=== PATIENT | female | born 1985 | race Caucasian/White ===

== ENCOUNTER 2016-04-25 17:41 | Emergency (ER) | payer SELFPAY ==
[2016-04-25] MEDS ORDERED: Sensorcaine 0.25% 10 ML IJ ONE (18:03)
[2016-04-25] MEDS ORDERED: BACIGUENT PACKET TP ONE (18:03)
[2016-04-25] MEDS ORDERED: Sensorcaine 0.25% 10 ML ONE (18:05)
--- NOTE | 2016-04-25 18:08 | ERPHSYRPT ---
- History of Present Illness Time Seen by Provider: 04/25/16 18:00 Source: patient Exam Limitations: no limitations Patient Subjective Stated Complaint: PT CUT LEFT RING FINGER ON CAN LID. 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; no other injury or complaints; no numbness or weakness Occurred: just prior to arrival Method of Injury: incised Quality: constant Severity of Pain-Max: mild Severity of Pain-Current: mild Extremities Pain Location: 4th finger: left (1cm volar) Modifying Factors: Improves With: nothing Associated Symptoms: none Allergies/Adverse Reactions: Penicillins Allergy (Verified 04/25/16 17:54) Home Medications: Ranitidine HCl [Zantac 75] 75 mg DAILY 04/25/16 [History] Hx Tetanus, Diphtheria Vaccination/Date Given: Yes (7 YEARS) Hx Influenza Vaccination/Date Given: No Hx Pneumococcal Vaccination/Date Given: No Immunizations Up to Date: Yes - Review of Systems Constitutional: No Symptoms Eyes: No Symptoms Ears, Nose, & Throat: No Symptoms Respiratory: No Cough, No Cyanosis, No Dyspnea Cardiac: No Chest Pain, No Edema, No Palpitations Abdominal/Gastrointestinal: No Abdominal Pain, No Nausea, No Vomiting, No Diarrhea Genitourinary Symptoms: No Symptoms Musculoskeletal: Injury (laceration left ring finger), No Arthralgias, No Back Pain, No Neck Pain Skin: No Symptoms Neurological: No Symptoms Psychological: No Symptoms - Past Medical History Pertinent Past Medical History: Yes Respiratory History: Bronchitis Psycho-Social History: Attention Deficit Disorder, Bipolar Other Medical History: CHRONIC BACK PAIN - Past Surgical History Past Surgical History: Yes Other Surgical History: OVARIAN CYST - Social History Smoking Status: Current every day smoker Exposure to second hand smoke: Yes Alcohol Use: Socially Drug Use: none Patient Lives Alone: Yes Significant Family History: no pertinent family hx - Female History Hx Last Menstrual Period: DEC 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) - Nursing Vital Signs Nursing Vital Signs: Initial Vital Signs Temperature 97.0 F Temperature Source Oral Pulse Rate 92 Respiratory Rate 16 Blood Pressure [Right Arm] 142/106 Pain Intensity 7 - Physical Exam General Appearance: mild distress, alert, thin Shoulder Exam: normal inspection, non-tender, no evidence of injury, normal ROM Elbow/Forearm Exam: normal inspection, non-tender, no evidence of injury, normal ROM Wrist Exam: normal inspection, non-tender, no evidence of injury, normal ROM Hand Exam: non-tender, normal ROM, laceration (left ring finger), No no evidence of injury (1 cm laceration volar aspect proximal left ring finger; no bleeding or FB; no distal defecits), No bone tenderness Neuro/Tendon Exam: normal sensation, normal motor functions, normal tendon functions, responds to pain, no evidence tendon injury Mental Status Exam: alert, oriented x 3, cooperative Skin Exam: normal color, warm, dry, No rash SpO2 Interpretation: normal SpO2: 99 Oxygen Delivery: Room Air Procedures - Laceration/Wound Repair Left Proximal Volar Finger Wound Location: Left, hand (ring finger) Wound Length (cm): 1.0 Wound's Depth, Shape: linear, into subcut Wound Explored: clean Irrigated: Yes Hibiclens Prep: Yes Anesthesia: digital block, marcaine 0.25 Volume Anesthetic (ccs): 4 Wound Repaired With: sutures Suture Size/Type: 5-0 Number of Sutures: 3 Layer Closure?: No - Course Nursing assessment & vital signs reviewed: Yes Ordered Tests: Active Orders 24 hr Category Date Time Status Re-Check Vital Signs STAT Care 04/25/16 18:03 Active Wound Care STAT Care 04/25/16 18:03 Active Medication Summary Discontinued Medications Generic Name Dose Route Start Last Admin Trade Name Freq PRN Reason Stop Dose Admin Bacitracin 0.9 gm 04/25/16 18:03 04/25/16 18:23 Baciguent Packet TP 04/25/16 18:04 0.9 gm STAT ONE Administration Bacitracin Confirm 04/25/16 18:24 Baciguent Packet Administered 04/25/16 18:25 Dose 1 gm .ROUTE .STK-MED ONE Bupivacaine HCl 5 ml 04/25/16 18:03 04/25/16 18:23 Sensorcaine 0.25% 10 Ml IJ 04/25/16 18:04 5 ml STAT ONE Administration Bupivacaine HCl Confirm 04/25/16 18:05 Sensorcaine 0.25% 10 Ml Administered 04/25/16 18:06 Dose 10 ml .ROUTE .STK-MED ONE - Progress Progress: improved, re-examined Progress Note: 04/25/16 18:32 instructions given Counseled pt/family regarding: diagnosis, need for follow-up - Departure Time of Disposition: 18:32 Departure Disposition: Home Clinical Impression: Trigger finger, left ring finger Condition: Stable Critical Care Time: No Referrals: ALISSA CHRISTIANSEN [Primary Care Provider] - Instructions: Care for a Laceration After Repair, Laceration Repair -- Simple, Laceration Repair -- Finger Additional Instructions: suture removal 7-10 days; clean; bacitracin Follow-up with family doctor as directed. Call for appointment. Return if any problems. If you smoke please stop. Call or follow up with your family doctor for assistance if you need it to stop. Please wear your seatbelt when driving. Have a nice day. Thank you for allowing us to participate in your care today. :o) Dr Alexander Barney
[2016-04-25] MEDS ORDERED: BACIGUENT PACKET ONE (18:24)
[2016-04-25 18:46] VITALS: BP 126/73; PULSE 72; O2SAT 98
== END 2016-04-25 18:49 | disposition home or self-care (01) ==
LOC: ED 17:41
PROC: 0HQGXZZ Repair Left Hand Skin, External Approach (ICD-10-PCS; principal; 2016-04-25)
DX: M65.342 Trigger finger, left ring finger (principal); S61.215A Laceration without foreign body of left ring finger without damage to nail, initial encounter; W26.8XXA Contact with other sharp object(s), not elsewhere classified, initial encounter
CPT/HCPCS: 12001; 99282; 99283

== ENCOUNTER 2016-10-17 03:16 | Emergency (ER) | payer OTHER ==
[2016-10-17 04:21] LABS: Collection Type CATH; Glucose NEGATIVE (NEGATIVE); Leukocyte Esterase NEGATIVE (NEGATIVE)
[2016-10-17 04:22] LABS: Bilirubin NEGATIVE (NEGATIVE); Blood 250 Ery/ul (0-5); COMPLETE URINE MICROSCOPIC? YES; Epithelial Cells RARE /HPF (FEW)
--- NOTE | 2016-10-17 04:38 | ERPHSYRPT ---
- History of Present Illness Time Seen by Provider: 10/17/16 03:35 Source: patient Exam Limitations: clinical condition Patient Subjective Stated Complaint: pt just found out she is 12 weeks friday when she was seen at the [facility] for urinary retention-she has a el place with a return o 800cc -it remained in until 1300 wed she voided without difficulty until 2100 last night and hasn't voided since -she arr very uncomfortable -cont drinking water until she began to feel nauseated no fever - no infection in the urine at the clinic -ultrasound done revealed a 12 week -pt is gr 3 p2 Triage Nursing Assessment: pt is awake and alert and able to answer questions she cannot sit down it is to uncomfortable - she began to dribble a little on arr but was unable to cont voiding in the br Physician History: PATIENT IS A -3, PARA-2, 12 WEEK GESTATION COMPLAINS OF URGENCY WITH INABILITY TO VOID SINCE LAST NIGHT. HEAD EL CATHETER REMOVED YESTERDAY FOR ACUTE URINARY RETENTION. DENIES ABDOMINAL PAIN, FEVER, FLANK PAIN, NAUSEA OR EMESIS. Timing/Duration: yesterday Activites at Onset: none Onset Location: suprapubic Pain Radiation: none Severity of Pain-Max: mild Severity of Pain-Current: mild Sexual intercourse history: non-contributory Modifying Factors: Improves With: urinating Associated Symptoms: urinary frequency, other (URGENCY) Allergies/Adverse Reactions: Penicillins Allergy (Verified 10/17/16 03:50) Home Medications: No Reportable Medications [No Reported Medications] 10/17/16 [History] Hx Tetanus, Diphtheria Vaccination/Date Given: Yes (7 YEARS) Hx Influenza Vaccination/Date Given: No Hx Pneumococcal Vaccination/Date Given: No - Review of Systems Constitutional: No Fever, No Chills Eyes: No Symptoms Ears, Nose, & Throat: No Symptoms Respiratory: No Cough, No Dyspnea Cardiac: No Chest Pain, No Edema, No Syncope Abdominal/Gastrointestinal: No Abdominal Pain, No Nausea, No Vomiting, No Diarrhea Genitourinary Symptoms: Urgency, Urinary Retention, No Dysuria Musculoskeletal: No Back Pain, No Neck Pain Skin: No Rash Neurological: No Dizziness, No Focal Weakness, No Sensory Changes Psychological: No Symptoms Endocrine: No Symptoms All Other Systems: Reviewed and Negative - Past Medical History Pertinent Past Medical History: Yes Respiratory History: Bronchitis Psycho-Social History: Attention Deficit Disorder, Bipolar Other Medical History: CHRONIC BACK PAIN - Past Surgical History Past Surgical History: Yes Other Surgical History: OVARIAN CYST - Social History Smoking Status: Current every day smoker Exposure to second hand smoke: Yes Alcohol Use: Socially Drug Use: none Patient Lives Alone: No Significant Family History: no pertinent family hx - Female History Hx Last Menstrual Period: last month 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 Nursing Vital Signs: Initial Vital Signs Temperature 98.4 F 10/17/16 03:20 Pulse Rate 80 10/17/16 03:20 Respiratory Rate 16 10/17/16 03:20 Blood Pressure 115/68 10/17/16 03:20 O2 Sat by Pulse Oximetry 98 10/17/16 03:20 Pain Scale Pain Intensity 8 - Physical Exam General Appearance: no apparent distress, alert Eye Exam: PERRL/EOMI, eyes nml inspection Ears, Nose, Throat Exam: normal ENT inspection, TMs normal, pharynx normal, moist mucous membranes Neck Exam: normal inspection, non-tender, supple, full range of motion Respiratory Exam: normal breath sounds, lungs clear, No respiratory distress Cardiovascular Exam: regular rate/rhythm, normal heart sounds, normal peripheral pulses Gastrointestinal/Abdomen Exam: soft, distention, No tenderness, No mass Back Exam: normal inspection, normal range of motion, No CVA tenderness, No vertebral tenderness Extremity Exam: normal inspection, normal range of motion, pelvis stable Neurologic Exam: alert, oriented x 3, cooperative, 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, normal mood/affect, sensation nml, No motor deficits Skin Exam: normal color, warm, dry Lymphatic Exam: No adenopathy SpO2: 98 Oxygen Delivery: Room Air Ordered Tests: Active Orders 24 hr Category Date Time Status ACCUCHECK [Accucheck] STAT Care 10/17/16 03:51 Active Heart Tones-ED STAT Care 10/17/16 03:59 Active El [Catheter-Turner El] STAT Care 10/17/16 03:52 Active UA W/ MICROSCOPIC Stat Lab 10/17/16 04:00 Completed Lab/Rad Data: Laboratory Results 10/17/16 Range/Units 04:00 Ur Collection Type CATH Urine Color YELLOW (YELLOW) Urine Appearance CLEAR (CLEAR) Urine pH 7.0 (5-6) Ur Specific [place] 1.010 (1.005-1.025) Urine Protein NEGATIVE (Negative) Urine Ketones NEGATIVE (NEGATIVE) Urine Blood 250 (0-5) Aidan/ul Urine Nitrite NEGATIVE (NEGATIVE) Urine Bilirubin NEGATIVE (NEGATIVE) Urine Urobilinogen NORMAL (0-1) mg/dL Ur Leukocyte Esterase NEGATIVE (NEGATIVE) Urine Microscopic RBC >100 (0-2) /HPF Ur Epithelial Cells RARE (FEW) /HPF Urine Glucose NEGATIVE (NEGATIVE) mg/dL Specimen Received 10-17-16 0420 - Progress Progress Note: 10/17/16 04:38 HEART TONES 150, ACCUCHECK 84 10/17/16 04:43 EL CATH INSERTION URINE OUT PUT 550ML Counseled pt/family regarding: lab results, diagnosis, need for follow-up - Departure Time of Disposition: 04:56 Departure Disposition: Home Clinical Impression: ACUTE URINARY RETENTION, Condition: Stable Critical Care Time: No Additional Instructions: MAINTAIN EL CATHETER UNTIL REMOVAL PER DR GARCIA. CALL OFFICE THIS AM FOR APPOINTMENT.
[2016-10-17 05:14] VITALS: PULSE 72; O2SAT 97
[2016-10-17 05:17] VITALS: BP 112/78
== END 2016-10-17 05:10 | disposition home or self-care (01) ==
LOC: ED 03:16
DX: O26.891 Other specified pregnancy related conditions, first trimester (principal); R33.9 Retention of urine, unspecified; R11.0 Nausea; R35.0 Frequency of micturition; R39.15 Urgency of urination; F98.8 Other specified behavioral and emotional disorders with onset usually occurring in childhood and adolescence
CPT/HCPCS: 51702; 81000; 82962; 99283

== ENCOUNTER 2016-10-29 12:22 | Emergency (ER) | payer OTHER ==
[2016-10-29 12:35] VITALS: O2SAT 100
[2016-10-29] MEDS ORDERED: Sodium Chloride 0.9% 1000 ML 1,000 ML IV STA (13:43)
--- NOTE | 2016-10-29 13:43 | ERPHSYRPT ---
- History of Present Illness Time Seen by Provider: 10/29/16 13:41 Source: patient Exam Limitations: no limitations Patient Subjective Stated Complaint: 16 weeks . this am having vaginal cramping and spotting Triage Nursing Assessment: ambulated to room per self without difficulty. skin w/d, color normal, resp easy. two other pregnancies normal. Physician History: The patient is a 31-year-old female at 16 weeks complaining of mild abdominal cramping and vaginal spotting today. Her boss at work told her to come to the ER. Timing/Duration: today Severity: mild Associated Symptoms: denies symptoms Allergies/Adverse Reactions: Penicillins Allergy (Verified 10/29/16 12:36) Home Medications: No Reportable Medications [No Reported Medications] 10/17/16 [History] Hx Tetanus, Diphtheria Vaccination/Date Given: Yes (7 YEARS) Hx Influenza Vaccination/Date Given: No Hx Pneumococcal Vaccination/Date Given: No - Review of Systems Constitutional: No Fever, No Chills Eyes: No Symptoms Respiratory: No Cough, No Dyspnea Cardiac: No Chest Pain, No Edema, No Syncope Abdominal/Gastrointestinal: Other (cramping) Genitourinary Symptoms: Vaginal Bleeding (spotting) Musculoskeletal: No Back Pain, No Neck Pain Skin: No Rash Neurological: No Dizziness, No Focal Weakness, No Sensory Changes Psychological: No Symptoms Endocrine: No Symptoms Hematologic/Lymphatic: No Symptoms Immunological/Allergic: No Symptoms All Other Systems: Reviewed and Negative - Past Medical History Pertinent Past Medical History: Yes Respiratory History: Bronchitis Psycho-Social History: Attention Deficit Disorder, Bipolar Other Medical History: CHRONIC BACK PAIN - Past Surgical History Past Surgical History: Yes Other Surgical History: OVARIAN CYST - Social History Smoking Status: Former smoker Exposure to second hand smoke: Yes Alcohol Use: Socially Drug Use: none Patient Lives Alone: No Significant Family History: no pertinent family hx - Female 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 Vital Signs Nursing Vital Signs: Initial Vital Signs Temperature 97.9 F 10/29/16 12:28 Pulse Rate 73 10/29/16 12:28 Respiratory Rate 16 10/29/16 12:28 Blood Pressure 116/65 10/29/16 12:28 O2 Sat by Pulse Oximetry 100 10/29/16 12:28 Pain Scale Pain Intensity 3 - Physical Exam General Appearance: no apparent distress, alert Eye Exam: PERRL/EOMI, eyes nml inspection Ears, Nose, Throat Exam: normal ENT inspection, TMs normal, pharynx normal, moist mucous membranes Neck Exam: normal inspection, non-tender, supple, full range of motion Respiratory Exam: normal breath sounds, lungs clear, No respiratory distress Cardiovascular Exam: regular rate/rhythm, normal heart sounds, normal peripheral pulses Gastrointestinal/Abdomen Exam: soft, normal bowel sounds, No tenderness, No mass Pelvic Exam: not done Rectal Exam: not done Back Exam: normal inspection, normal range of motion, No CVA tenderness, No vertebral tenderness Extremity Exam: normal inspection, normal range of motion, pelvis stable Neurologic Exam: alert, oriented x 3, cooperative, normal mood/affect, nml cerebellar function, nml station & gait, sensation nml, No motor deficits Skin Exam: normal color, warm, dry, No rash Lymphatic Exam: No adenopathy SpO2 Interpretation: normal SpO2: 100 Oxygen Delivery: Room Air Ordered Tests: Active Orders 24 hr Category Date Time Status Heart Tones-ED STAT Care 10/29/16 13:43 Active IV Insertion STAT Care 10/29/16 13:43 Active BMP Stat Lab 10/29/16 13:54 Completed CBC W DIFF Stat Lab 10/29/16 13:54 Completed CULTURE,URINE Stat Lab 10/29/16 14:00 Received UA W/ MICROSCOPIC Stat Lab 10/29/16 14:00 Completed Medication Summary Discontinued Medications Generic Name Dose Route Start Last Admin Trade Name Farshad PRN Reason Stop Dose Admin Sodium Chloride 1,000 mls @ 999 mls/hr 10/29/16 13:43 10/29/16 13:55 Sodium Chloride 0.9% 1000 Ml IV 10/29/16 14:43 999 mls/hr .Q1H1M STA Administration Sodium Chloride Confirm 10/29/16 13:54 Sodium Chloride 0.9% 1000 Ml Administered 10/29/16 13:55 Dose 1,000 mls @ ud .ROUTE .STK-MED ONE Lab/Rad Data: Laboratory Result Diagrams 10/29/16 13:54 10/29/16 13:54 Laboratory Results 10/29/16 10/29/16 10/29/16 Range/Units 14:00 13:54 13:54 WBC 13.8 H (4.0-10.5) K/mm3 RBC 3.78 L (4.1-5.4) M/mm3 Hgb 11.9 L (12.0-16.0) gm/dl Hct 34.5 L (35-47) % MCV 91.3 (78-100) fl MCH 31.4 (26-32) pg MCHC 34.5 (32-36) g/dl RDW 12.9 (11.5-14.0) % Plt Count 206 (150-450) K/mm3 MPV 10.0 H (6-9.5) fl Gran % 81.3 H (36.0-66.0) % Lymphocytes % 13.8 L (24.0-44.0) % Monocytes % 4.1 (0.0-12.0) % Eosinophils % 0.7 (0.00-5.0) % Basophils % 0.1 (0.0-0.4) % Basophils # 0.02 (0-0.4) Sodium 135 L (136-145) mEq/L Potassium 3.5 (3.5-5.1) mEq/L Chloride 101 (98-107) mEq/L Carbon Dioxide 22.4 (21-32) mEq/L Anion Gap 14.9 (5-15) MEQ/L BUN 8 L (9-20) mg/dL Creatinine 0.71 (0.55-1.30) mg/dl Estimated GFR > 60 ML/MIN Glucose 89 (70-110) MG/DL Calcium 8.9 (8.5-10.1) mg/dL Ur Collection Type CCMS Urine Color YELLOW (YELLOW) Urine Appearance CLEAR (CLEAR) Urine pH 6.0 (5-6) Ur Specific [place] 1.010 (1.005-1.025) Urine Protein NEGATIVE (Negative) Urine Ketones NEGATIVE (NEGATIVE) Urine Blood TRACE NON-HEM (0-5) Aidan/ul Urine Nitrite NEGATIVE (NEGATIVE) Urine Bilirubin NEGATIVE (NEGATIVE) Urine Urobilinogen NORMAL (0-1) mg/dL Ur Leukocyte Esterase TRACE (NEGATIVE) Urine Microscopic RBC 0-2 (0-2) /HPF Urine Microscopic WBC 0-2 (0-5) /HPF Ur Epithelial Cells FEW (FEW) /HPF Urine Glucose NEGATIVE (NEGATIVE) mg/dL Specimen Received 10-29-16 1412 - Progress Progress: improved Progress Note: 10/29/16 14:46 FHT were 130s bpm. Counseled pt/family regarding: lab results, diagnosis, need for follow-up - Departure Time of Disposition: 14:46 Departure Disposition: Home Clinical Impression: Vaginal bleeding before 22 weeks gestation Condition: Stable Critical Care Time: No Additional Instructions: You had mild vaginal bleeding during this . You were given IV fluids in the ER. The heart tones could be heard by ultrasound and were in the 130 bpm range. Please schedule follow-up appointment with her OB doctor.
[2016-10-29 13:54] VITALS: BP 110/32; PULSE 82
[2016-10-29] MEDS ORDERED: Sodium Chloride 0.9% 1000 ML 1,000 ML ONE (13:54)
[2016-10-29 14:00] LABS: BASOPHIL % 0.1 % (0.0-0.4); Eosinophil % 0.7 % (0.00-5.0); Granulocytes % 81.3 % (36.0-66.0); Lymphocytes % 13.8 % (24.0-44.0); Mean Cell Volume 91.3 fl (78-100); Monocytes % 4.1 % (0.0-12.0); Platelet Count 206 K/mm3 (150-450); Red Blood Count 3.78 M/mm3 (4.1-5.4); Red Cell Distribution Width 12.9 % (11.5-14.0); White Blood Count 13.8 K/mm3 (4.0-10.5)
[2016-10-29 14:01] LABS: Mean Corpuscular Hemoglobin 31.4 pg (26-32)
[2016-10-29 14:12] LABS: Collection Type CCMS
[2016-10-29 14:13] LABS: ANION GAP 14.9 MEQ/L (5-15); BLOOD UREA NITROGEN 8 mg/dL (9-20); CHLORIDE 101 mEq/L (98-107); Carbon Dioxide 22.4 mEq/L (21-32); Glucose 89 MG/DL (70-110); Potassium 3.5 mEq/L (3.5-5.1); SODIUM 135 mEq/L (136-145)
[2016-10-29 14:13] LABS: Bilirubin NEGATIVE (NEGATIVE); Blood TRACE NON-HEM Ery/ul (0-5); COMPLETE URINE MICROSCOPIC? YES; Epithelial Cells FEW /HPF (FEW); Glucose NEGATIVE (NEGATIVE); Leukocyte Esterase TRACE (NEGATIVE); WBC 0-2 /HPF (0-5)
[2016-10-29 14:14] LABS: ADD URINE CULTURE? YES (NO)
== END 2016-10-29 14:54 | disposition home or self-care (01) ==
LOC: ED 12:22
DX: O20.9 Hemorrhage in early pregnancy, unspecified (principal); Z3A.16 16 weeks gestation of pregnancy
CPT/HCPCS: 36000; 36415; 80048; 81000; 85025; 87086; 96360; 99284

== ENCOUNTER 2016-11-11 18:35 | Inpatient (IN) | payer OTHER ==
[2016-11-11 21:14] LABS: BASOPHIL % 0.1 % (0.0-0.4); Eosinophil % 0.8 % (0.00-5.0); Granulocytes % 77.6 % (36.0-66.0); Lymphocytes % 16.3 % (24.0-44.0); Mean Cell Volume 91.1 fl (78-100); Mean Platelet Volume 9.9 fl (6-9.5); Monocytes % 5.2 % (0.0-12.0); Platelet Count 225 K/mm3 (150-450); Red Cell Distribution Width 13.1 % (11.5-14.0); White Blood Count 17.2 K/mm3 (4.0-10.5)
[2016-11-11 21:15] LABS: Mean Corpuscular Hemoglobin 31.3 pg (26-32)
[2016-11-11] MEDS ORDERED: xanAX 0.5 MG PO PRN (21:19)
[2016-11-11 21:27] LABS: INR 0.89 (0.8-3.0)
[2016-11-11] MEDS ORDERED: GENTAMICIN 80 MG/50 ML PREMIX*** 80 MG/50 ML ML IV ONE (21:37)
[2016-11-11] MEDS ORDERED: Unasyn 3GM / NaCl 100ML 3 GM/100 ML IVPB ONE (21:37)
[2016-11-11 21:38] LABS: ALBUMIN 2.8 g/dL (3.4-5.0); ALKALINE PHOSPHATASE 67 U/L (46-116); ANION GAP 17.6 MEQ/L (5-15); BLOOD UREA NITROGEN 10 mg/dL (9-20); CHLORIDE 107 mEq/L (98-107); Carbon Dioxide 17.6 mEq/L (21-32); Glucose 104 MG/DL (70-110); Potassium 3.5 mEq/L (3.5-5.1); SGOT/AST 14 U/L (15-37); SGPT/ALT 21 U/L (12-78); SODIUM 139 mEq/L (136-145); Total Protein 6.5 gm/dL (6.4-8.2)
[2016-11-11] MEDS: GENTAMICIN 80 MG/50 ML PREMIX*** 80 MG/50 ML ML IV SCH (21:50)
[2016-11-11] MEDS ORDERED: Lactated Ringers 1,000 ML IV SCH (22:00)
[2016-11-11] MEDS ORDERED: CYTOTEC ONE (22:00)
[2016-11-11] MEDS ORDERED: PITOCIN 30 UNITS/ LR 500 ML 500 ML IV SCH (22:00)
[2016-11-11] MEDS ORDERED: Morphine PCA 1 MG/ML 30 ML IV ONE (22:07)
[2016-11-11] MEDS: Morphine PCA 1 MG/ML 30 ML IV PRN (22:10)
[2016-11-11] MEDS: Unasyn 3GM / NaCl 100ML 3 GM/100 ML IVPB IV SCH (22:23)
[2016-11-12 00:27] LABS: Bilirubin NEGATIVE (NEGATIVE); Collection Type CATH; Glucose NEGATIVE (NEGATIVE); Leukocyte Esterase NEGATIVE (NEGATIVE)
[2016-11-12 00:28] LABS: Bacteria FEW /HPF (NEGATIVE); Blood 50 Ery/ul (0-5); COMPLETE URINE MICROSCOPIC? YES; Epithelial Cells FEW /HPF (FEW)
[2016-11-12] MEDS ORDERED: CYTOTEC VAG ONE (02:00)
[2016-11-12] MEDS: Unasyn 3GM / NaCl 100ML 3 GM/100 ML IVPB IV SCH ×3 (03:57→17:50)
[2016-11-12] MEDS ORDERED: Dermoplast Spray TP PRN (04:05)
[2016-11-12] MEDS ORDERED: Dulcolax 10 MG SUPP PR PRN (04:05)
[2016-11-12] MEDS ORDERED: NORCO 5/325 MG PO PRN (04:05)
[2016-11-12] MEDS ORDERED: TYLENOL EXTRA STRENGTH 500 MG PO PRN (04:05)
[2016-11-12] MEDS ORDERED: Anucort-HC SUPPOSITORY PR PRN (04:05)
[2016-11-12] MEDS ORDERED: CORTISONE 1% CREAM TP PRN (04:05)
[2016-11-12] MEDS: MOTRIN 400 MG PO PRN ×2 (04:08→20:16)
[2016-11-12] MEDS: GENTAMICIN 80 MG/50 ML PREMIX*** 80 MG/50 ML ML IV SCH ×2 (05:33→14:40)
[2016-11-12] MEDS: Morphine PCA 1 MG/ML 30 ML IV PRN (06:03)
[2016-11-12 06:07] LABS: BASOPHIL % 0.1 % (0.0-0.4); Eosinophil % 0.4 % (0.00-5.0); Granulocytes % 82.9 % (36.0-66.0); Lymphocytes % 11.8 % (24.0-44.0); Mean Cell Volume 91.4 fl (78-100); Mean Platelet Volume 10.1 fl (6-9.5); Monocytes % 4.8 % (0.0-12.0); Platelet Count 210 K/mm3 (150-450); Red Blood Count 3.36 M/mm3 (4.1-5.4); Red Cell Distribution Width 12.9 % (11.5-14.0); White Blood Count 16.7 K/mm3 (4.0-10.5)
[2016-11-12 06:15] LABS: Mean Corpuscular Hemoglobin 30.9 pg (26-32)
--- NOTE | 2016-11-12 08:57 | XRAY ---
Indication: Spotting. Placenta previa. Two-dimensional early OB ultrasound performed. Comparison: None There is a single intrauterine without heart tones or movement. No amniotic fluid either. Cervical length measures 3.7 cm and is closed. Impression: demise. Comment: Preliminary report was given.
[2016-11-12] MEDS ORDERED: Colace 100 MG PO SCH (10:00)
[2016-11-12] MEDS ORDERED: FERREX 150 PO SCH (10:00)
[2016-11-12 20:35] VITALS: BP 135/88; PULSE 70
[2016-11-13 04:49] LABS: Hepatitis B Sur Ag Screen Non Reactive (Non Reactive)
== END 2016-11-12 21:03 | disposition home or self-care (01) | DRG 774 ==
LOC: EDSTATUS 18:50 → OB 18:52 → OBSVTOIN 21:32
PROVIDERS: ADMIT Family Medicine; ATTEND Family Medicine
PROC: 10E0XZZ Delivery of Products of Conception, External Approach (ICD-10-PCS; principal; 2016-11-12)
DX: O44.02 Complete placenta previa NOS or without hemorrhage, second trimester (principal); Z3A.21 21 weeks gestation of pregnancy; Z37.1 Single stillbirth
CPT/HCPCS: 36415; 76815; 80053; 80055; 80307; 81000; 85025; 85610; 87040; 87070; 87086; 88305; 88307; J0295; J1580; J2270; J2590; A9270-GY

== ENCOUNTER 2018-04-24 05:49 | Day surgery (SDC) | payer OTHER ==
[2018-04-24] MEDS ORDERED: DIPRIVAN 200 MG/20 ML IV ONE (05:50)
[2018-04-24] MEDS ORDERED: Ketamine HCl 50 MG/ML IV ONE (05:50)
[2018-04-24] MEDS ORDERED: Lactated Ringers 1,000 ML IV SCH (06:30)
--- NOTE | 2018-04-24 08:48 | OP ---
SURGERY DATE/TIME: 04/24/2018 0755 PREOPERATIVE DIAGNOSIS: Epigastric pain. POSTOPERATIVE DIAGNOSIS: Gastritis. PROCEDURE: Esophagogastroduodenoscopy with cold biopsy forceps biopsy of the gastric antrum. SURGEON: Dr. Ngo. ANESTHESIA: Medications were given by the anesthesia department. BRIEF HISTORY: The patient is a 32 year old white female presenting now for gastric pain. She reports she has had worsening over the past three weeks. She has been on Nexium for over a year. She had a gallbladder ultrasound and HIDA scan performed which were negative. The patient was felt the need to have endoscopic evaluation. She was appraised of the risks of the procedure including the risk of perforation, phlebitis, untoward reaction to medication, bleeding and missed lesions. The patient verbalized her understanding and desired to have the procedure performed. DESCRIPTION OF PROCEDURE: The patient was given the medications by the anesthesia department. She had continuous pulse oximetry, ECG monitoring, intermittent blood pressure monitoring and tidal CO2 monitoring during the examination. She was placed in the left lateral decubitus position. A bite block was placed and the flexible Olympus gastroscope was used to intubate the oropharynx. The scope was easily introduced in the esophagus which appeared to be normal throughout its length. The stomach was entered where normal gastric rugal folds were seen. The gastric frias suctioned dry and the stomach re-insufflated. The scope was passed along the greater curvature of the stomach to the antrum. There appeared to be some mild erythema present but no erosions or ulcerations. The pylorus encountered and intubated and the duodenum inspected and found to be normal. The scope was withdrawn towards the stomach. A retroflex view was obtained of the lesser curvature, fundus and cardia regions of the stomach and these being normal the scope was redirected towards the gastric antrum and biopsies were then obtained to rule out the presence of Helicobacter pylori-type organisms. The scope was then removed from the patient who tolerated the procedure well and was sent back to outpatient recovery in good condition.
[2018-04-24 08:55] VITALS: BP 110/77; PULSE 74; O2SAT 100
== END 2018-04-24 09:06 | disposition home or self-care (01) ==
LOC: SDC 05:49
PROVIDERS: ATTEND Family Medicine
DX: K29.70 Gastritis, unspecified, without bleeding (principal); R10.13 Epigastric pain
CPT/HCPCS: 84703; 88305; J2704

== ENCOUNTER 2023-04-27 14:51 | Emergency (ER) | payer OTHER ==
[2023-04-27] MEDS ORDERED: solu-CORTEF 250MG IM STA (14:59)
[2023-04-27] MEDS ORDERED: BENADRYL 50 MG/ML IM ONE (15:00)
[2023-04-27 15:04] VITALS: BP 126/94; PULSE 85; TEMP 97.1; O2SAT 99
[2023-04-27] MEDS ORDERED: BENADRYL 50 MG/ML ONE (15:19)
[2023-04-27] MEDS ORDERED: Sterile H2O 10 ml IJ ONE (15:19)
[2023-04-27] MEDS ORDERED: solu-CORTEF 250MG ONE (15:19)
--- NOTE | 2023-04-27 15:24 | ERPHSYRPT ---
- History of Present Illness Time Seen by Provider: 04/27/23 15:20 Source: patient Exam Limitations: no limitations Patient Subjective Stated Complaint: rash on face that is beginning to b blister Triage Nursing Assessment: Pt brought to the ER by her , srini seymour, rates the "burn" as 08/31, states that the rash is not in any other place but her face, denies difficulty breathing, denies swollen tongue, doesn't appear to be in any distress Physician History: rash on face that is beginning to blister. the rash is not in any other place but her face, denies difficulty breathing, denies swollen tongue, doesn't appear to be in any distress, Started today AM Timing/Duration: today Quality: burning, itchy, painful Severity: moderate Location: face Possible Causes: no cause identified Associated Symptoms: denies symptoms Allergies/Adverse Reactions: Penicillins Allergy (Severe, Verified 04/27/23 15:04) Hives Home Medications: No Reportable Medications [No Reported Medications] 04/27/23 [History] Hx Tetanus, Diphtheria Vaccination/Date Given: Yes (7 YEARS) Hx Influenza Vaccination/Date Given: No Hx Pneumococcal Vaccination/Date Given: No Travel Risk - International Travel Have you traveled outside of the country in past 3 weeks: No - Coronavirus Screening Are you exhibiting any of the following symptoms?: No Close contact with a COVID-19 positive Pt in past 14-21 Days: No - Vaccine Status Have you recieved a Covid-19 vaccination: No - Review of Systems Constitutional: No Symptoms Eyes: No Symptoms Ears, Nose, & Throat: No Symptoms Respiratory: No Symptoms Cardiac: No Symptoms Abdominal/Gastrointestinal: No Symptoms Genitourinary Symptoms: No Symptoms Musculoskeletal: No Symptoms Skin: Rash - Past Medical History Pertinent Past Medical History: Yes Neurological History: No Pertinent History, Other, Migraines ENT History: No Pertinent History Cardiac History: No Pertinent History Respiratory History: No Pertinent History Endocrine Medical History: No Pertinent History Musculoskeletal History: No Pertinent History GI Medical History: GERD History: No Pertinent History Psycho-Social History: No Pertinent History, Bipolar, Attention Deficit Disorder Female Reproductive Disorders: No Pertinent History, Other Other Medical History: hx cysts on ovaries, chronic pelvic pain,cyst on brain states it wasfound when she was a teenager, it causes her migrains - Past Surgical History Past Surgical History: Yes Neuro Surgical History: No Pertinent History Cardiac: No Pertinent History Respiratory: No Pertinent History Gastrointestinal: No Pertinent History, Other Genitourinary: No Pertinent History Musculoskeletal: No Pertinent History Female Surgical History: No Pertinent History, Other Other Surgical History: cysts removed from ovaries, egd - Social History Smoking Status: Current every day smoker How long have you smoked: 20 years Exposure to second hand smoke: Yes Alcohol Use: Socially Drug Use: none Patient Lives Alone: No Significant Family History: no pertinent family hx - Female History Hx Now: No - Nursing Vital Signs Nursing Vital Signs: Initial Vital Signs Temperature 97.1 F 04/27/23 14:54 Pulse Rate 85 04/27/23 14:54 Blood Pressure 126/94 04/27/23 14:54 O2 Sat by Pulse Oximetry 99 04/27/23 14:54 Pain Scale Pain Intensity 6 - Physical Exam General Appearance: no apparent distress Eye Exam: PERRL/EOMI Ears, Nose, Throat Exam: normal ENT inspection Neck Exam: normal inspection Respiratory Exam: normal breath sounds Cardiovascular Exam: regular rate/rhythm Gastrointestinal/Abdomen Exam: soft Extremity Exam: normal inspection Neurologic Exam: alert, oriented x 3, cooperative Skin Exam: rash (on face only) SpO2: 99 - Course Nursing assessment & vital signs reviewed: Yes Ordered Tests: Medication Summary Discontinued Medications Generic Name Dose Route Start Last Admin Trade Name Farshad PRN Reason Stop Dose Admin Diphenhydramine HCl 25 mg 04/27/23 15:00 Diphenhydramine Hcl 50 Mg/Ml Vial IM 04/27/23 15:01 STAT ONE Diphenhydramine HCl Confirm 04/27/23 15:19 Diphenhydramine Hcl 50 Mg/Ml Vial Administered 04/27/23 15:20 Dose 50 mg .ROUTE .STK-MED ONE Hydrocortisone Sodium Succinate 250 mg 04/27/23 14:59 Hydrocortisone Sod Succinate 250 Mg/Vial Vial IM 04/27/23 15:00 ONCE STA Hydrocortisone Sodium Succinate Confirm 04/27/23 15:19 Hydrocortisone Sod Succinate 250 Mg/Vial Vial Administered 04/27/23 15:20 Dose 250 mg .ROUTE .STK-MED ONE Sterile Water Confirm 04/27/23 15:19 Water For Injection,Sterile 10 Ml Vial Administered 04/27/23 15:20 Dose 10 ml IJ .STK-MED ONE - Progress Progress: unchanged Counseled pt/family regarding: diagnosis, need for follow-up Medical Desision Making - Diagnostic Testing Diagnostic test were ordered, analyzed, and reviewed by me: No - Risk of complications Minimal Risk: Minimal risk of morbidity - Departure Departure Disposition: Home Clinical Impression: Rash and nonspecific skin eruption Condition: Stable Critical Care Time: No Referrals: DOCTOR,NO FAMILY [Primary Care Provider] - Follow up/PCP as directed Instructions: Poison [place], Poison [place], Poison [place] ([place]) Additional Instructions: Discharge/Care Plan TITI REYNOLDS was seen on 04/27/23 in the Emergency Room. The patient was counseled regarding Diagnosis,Lab results, Imaging studies, need for follow up and when to return to the Emergency Room. Prescriptions given: Discharge Note I have spoken with the patient and/or caregivers. I have explained the patient's condition, diagnosis and treatment plan based on the information available to me at this time. I have answered the patient's and/or caregiver's questions and addressed any concerns. The patient and/or caregivers have as good understanding of the patient's diagnosis, condition and treatment plan as can be expected at this point. The vital signs have been stable. The patient's condition is stable and appropriate for discharge from the emergency department. The patient will pursue further outpatient evaluation with the primary care physician or other designated or consulting physician as outlined in the discharge instructions. The patient and/or caregivers are agreeable to this plan of care and follow-up instructions have been explained in detail. The patient and/or caregivers have received these instruction. The patient/and or caregivers are aware that any significant change in condition or worsening of symptoms should prompt an immediate return to this or the closest emergency department or call 911. RASH 1. Depending on the reason for the rash, the instructions will differ. 2. If an antibiotic has been prescribed, take it as directed until gone. 3. If anti-fungals or shampoos are prescribed, use only as directed and follow specific instructions on package container. 4. Avoid hot showers/baths, as this may increase itching. 5. Calamine lotion or Aveeno Oatmeal baths may help itching. 6. See your family physician if these signs or symptoms persist for more than four days. TITI REYNOLDS was seen on 04/27/23 n the Emergency Room. At that time you were treated for an emergent condition, during your visit Laboratory, Radiology and/or other procedures may have been ordered. It is very important that you follow-up with your Primary Care Physician NO FAMILY DOCTOR within the next 24- 48 hours to review your Emergency Room visit and the final results of testing that was ordered. Some test results such as Urine Cultures, Blood Cultures, and other cultures if ordered will not be finalized for 24-48 hours. If you do not have a Primary Care Provider please call the medical records department at [phone] ext [phone] to obtain a copy of your results or you may sign into our patient portal to obtain these results by visiting us @ [email or web address] and completing the following steps: 1. Click on the Patient Portal link 2. Click the Patient Self Enrollment Link to complete the enrollment form and entering your 3. Once the enrollment form is completed you will receive an email with a temporary ID and password at the email address you provided. 4. Next choose a user name and password. Your user name must be at least 4 characters long and your password must be at least 4 characters long. 5. Choose a security question from the list and provide your answer to the question. If you already have signed into the Health Portal you may access your Health Care Information 14/10 by the following steps: 1. Login to our website @ [email or web address] 2. Enter your original user name and password. FAQS The [facility] Health Portal is an online tool that contains your Lab Results, Radiology Reports, Visit History, Discharge Instructions and Health Summary Lab and Radiology Results will not be available for 72 hours on the portal. The Portal is a secure site, passwords are encryted and URLs are re-written so they cannot be copied and pasted. You and authorized family members are the only ones who can access your Portal. Also there is a timeout feature that protects your information if you leave the Portal page open. If you have technical difficulty please use the Contact Us link on the page this will allow you to submit any questions you have regarding the Portal or you may contact the Medical Record Department at [phone].
== END 2023-04-27 15:31 | disposition home or self-care (01) ==
LOC: ED 14:51
DX: R21 Rash and other nonspecific skin eruption (principal); Z28.310 Unvaccinated for COVID-19; Z72.0 Tobacco use
CPT/HCPCS: 96372; 99283; J1200; J1720